=== PATIENT | female | born 1995 | race Hispanic/Latino ===

== ENCOUNTER 2021-07-07 12:28 | Outpatient (CLI) | payer OTHER | END 2021-07-07 12:29 | disposition home or self-care (01) | LOC: CSHULT 12:28 | PROVIDERS: ATTEND Family Medicine | DX: Z34.82 Encounter for supervision of other normal pregnancy, second trimester (principal); Z3A.21 21 weeks gestation of pregnancy | CPT/HCPCS: 76805 ==